=== PATIENT | male | born 1980 | race Caucasian/White ===

== ENCOUNTER 2017-06-14 13:33 | Emergency (ER) | payer SELFPAY ==
[2017-06-14] MEDS: KETOROLAC 60 MG/2 ML INJ. IM ×2 (15:38)
== END 2017-06-14 16:39 | disposition left against medical advice (07) ==
LOC: ER 13:33
DX: M25.511 Pain in right shoulder (principal); M54.6 Pain in thoracic spine; F41.9 Anxiety disorder, unspecified; F32.9 Major depressive disorder, single episode, unspecified; Z88.6 Allergy status to analgesic agent
CPT/HCPCS: 72125; 72128; 72131; 96372; 99284-25; J1885